=== PATIENT | male | born 1940 | race Caucasian/White ===

== ENCOUNTER 2018-06-01 11:11 | Day surgery (SDC) | payer MEDICARE ==
[~2018-06-01] VITALS: Ht 172.7 cm; Wt 86.2 kg
[~2018-06-01 11:11] MED LIST: ACETAMIN500 M1 PO; ADVIL200 MG PO; AVODART0.5 MG; DOXAZOSIN2 M1; IBUPROFEN600 MG PO; METOPROLOL SUC100 MG PO; OMEPRAZOLE20 MG PO; PANTOPRAZOLE SO40 M1 PO; RANITIDINE150 M1 PO; SIMVASTATIN40 MG; [UNRECOGNIZED DRUG - OTHER]
[2018-06-01 15:14] VITALS: BP 142/81
== END 2018-06-01 14:14 | disposition home or self-care (01) ==
LOC: ENDO 11:11 → ORM 15:05
PROVIDERS: ATTEND Internal Medicine Gastroenterology
PROC: 0DB58ZX Excision of Esophagus, Via Natural or Artificial Opening Endoscopic, Diagnostic (ICD-10-PCS; principal; 2018-06-01)
DX: K22.70 Barrett's esophagus without dysplasia (principal); K21.9 Gastro-esophageal reflux disease without esophagitis; K29.70 Gastritis, unspecified, without bleeding; K25.9 Gastric ulcer, unspecified as acute or chronic, without hemorrhage or perforation; K44.9 Diaphragmatic hernia without obstruction or gangrene; K31.9 Disease of stomach and duodenum, unspecified; K57.30 Diverticulosis of large intestine without perforation or abscess without bleeding; I10 Essential (primary) hypertension; E78.00 Pure hypercholesterolemia, unspecified; Z80.0 Family history of malignant neoplasm of digestive organs

== ENCOUNTER 2019-08-02 | Day surgery (SDC) | payer MEDICARE ==
[~2019-08-02] MED LIST changes: +ASPIRIN81 MG PO; +LISINOP/HCTZ1 TAB PO; +PANTOPRAZOLE SO20 M1 PO; -SIMVASTATIN40 MG; +SIMVASTATIN40 MG PO
== END 2019-08-02 11:20 | disposition home or self-care (01) ==
PROC: 0DB58ZX Excision of Esophagus, Via Natural or Artificial Opening Endoscopic, Diagnostic (ICD-10-PCS; principal; 2019-08-02)
DX: K22.70 Barrett's esophagus without dysplasia (principal); K21.9 Gastro-esophageal reflux disease without esophagitis; K29.70 Gastritis, unspecified, without bleeding; K44.9 Diaphragmatic hernia without obstruction or gangrene; I10 Essential (primary) hypertension; Z79.899 Other long term (current) drug therapy